=== PATIENT | female | born 1955 | race Caucasian/White ===

== ENCOUNTER 2024-10-26 08:59 | Observation (INO) ==
[~2024-10-26 08:59] MED LIST: Bupivacaine 0.25% SDV 30 ML ONE
[2024-10-26] MEDS: Buffered Lidocaine 1% SYRIN 1 ml INTRADERM ONE (09:27)
[2024-10-26] MEDS ORDERED: ceFAZolin 2 GM PREMIX 2 GM/50 ML BAG ONE (09:31)
[2024-10-26] MEDS ORDERED: Dexamethasone IV 4 MG/ML VIAL 1 ml VIAL ONE (09:31)
[2024-10-26] MEDS ORDERED: Famotidine IV 10 MG/ML 2 ml VIAL (20 mg) ONE (09:31)
[2024-10-26] MEDS ORDERED: Tranexamic Acid 1 GM/100ML BAG 2,000 MG/200 ML BAG IV ONE (09:33)
[2024-10-26] MEDS: Famotidine IV 10 MG/ML 2 ml VIAL (20 mg) IV ONE (09:48)
[2024-10-26] MEDS: Lactated Ringers 1000 ml BAG 1,000 ML IV SCH ×2 (09:49→17:48)
[2024-10-26] MEDS: Dexamethasone IV 4 MG/ML VIAL 1 ml VIAL IV SLOW PU ONE (09:49)
[2024-10-26 10:03] LABS: Rapid COVID-19 Molecular Undetected (Undetected)
[2024-10-26] MEDS ORDERED: Midazolam 2 mg/2 ml VIAL 1 mg/ml 2 ml VIAL (2 mg) ONE (11:06)
[2024-10-26] MEDS ORDERED: fentaNYL 100 mcg/2 ml 50 MCG/ML VIAL ONE (11:06)
[2024-10-26] MEDS ORDERED: Propofol 10 MG/ML 20 ML BTL ONE (11:06)
[2024-10-26] MEDS ORDERED: Lidocaine 2% PF 5 ML VIAL ONE (11:07)
[2024-10-26] MEDS ORDERED: Rocuronium 50 mg VIAL 10 mg/ml 5 ml VIAL (50 mg) ONE (11:07)
[2024-10-26] MEDS ORDERED: HYDROmorphone 0.5 MG/0.5 ML SYRINGE ONE ×2 (11:28→12:45)
[2024-10-26] MEDS ORDERED: Phenylephrine 40 mcg/mL 10mL (400mcg) SYRINGE ONE (11:32)
[2024-10-26] MEDS ORDERED: Labetalol IV 5 MG/ML 20 ml VIAL ONE (11:47)
[2024-10-26] MEDS ORDERED: Ondansetron 4 mg VIAL 2 MG/ML 2 ml VIAL ONE (13:20)
[2024-10-26] MEDS ORDERED: Calcium Carb (TUMS) 500 mg CHEW TAB PO PRN (14:08)
[2024-10-26] MEDS ORDERED: Morphine 2 MG/ML SYRINGE IV PRN (14:08)
[2024-10-26] MEDS ORDERED: Magnesium Hydroxide LIQ 30 ML UDC PO PRN (14:08)
[2024-10-26] MEDS ORDERED: Lactulose 30 ml UDC PO PRN (14:08)
[2024-10-26] MEDS ORDERED: Ondansetron ODT 4 mg TAB 4 MG TAB PO PRN (14:08)
[2024-10-26] MEDS ORDERED: Naloxone 0.4 mg VIAL 0.4 mg/ml 1 ml VIAL IV PRN (14:20)
[2024-10-26] MEDS ORDERED: HYDROmorphone 1 MG/1 ML SYRINGE IV PRN (14:20)
[2024-10-26] MEDS: Ondansetron 4 mg VIAL 2 MG/ML 2 ml VIAL IV PRN (18:30)
[2024-10-26] MEDS ORDERED: Dextrose 50% Syringe 50 ml 25 GM/50 ML SYRINGE IV PUSH PRN (18:48)
[2024-10-26] MEDS: BUPIVACAINE **LIPOSOME/PF 13.3 MG/ML (266MG/ 20ML) VIAL (RESTRICTED) INFIL ONE (20:55)
[2024-10-26] MEDS: Magnesium Hydroxide LIQ 30 ML UDC PO SCH (21:16)
[2024-10-26] MEDS: ceFAZolin 2 GM PREMIX 2 GM/50 ML BAG IV SCH (21:29)
[2024-10-27 05:50] LABS: Hematocrit 36.7 % (35-45); Hemoglobin 12.2 g/dL (11.5-14.3); Mean Platelet Volume 8.7 fL (7.5-11.2); Platelet Count 349 10^3/uL (150-450)
[2024-10-27 06:15] LABS: Creatinine, Serum 1.25 mg/dL (0.51-0.95); eGFR CKD-EPI 46.4 (>60)
[2024-10-27] MEDS: Vitamin THERAPEUTIC TAB PO SCH (08:10)
[2024-10-27 09:53] VITALS: BP 133/68
== END 2024-10-27 12:32 | disposition home or self-care (01) ==
LOC: OR 08:59 → SSU 08:59
PROVIDERS: ADMIT Orthopaedic Surgery Sports Medicine; ATTEND Orthopaedic Surgery Sports Medicine